=== PATIENT | male | born 1950 | race Caucasian/White ===

== ENCOUNTER 2021-02-08 10:29 | Emergency (ER) | payer BC ==
[~2021-02-08] VITALS: Ht 180.3 cm; Wt 99.8 kg
[2021-02-08 10:29] VITALS: BP_SYST 130
[~2021-02-08 10:29] MED LIST: ATEN-166 PO
[2021-02-08] MEDS ORDERED: PANTOPRAZOLE SODIUM 40 MG/VIAL (PROTONIX) ONE (10:51)
[2021-02-08] MEDS ORDERED: PANTOPRAZOLE SODIUM 40 MG/VIAL (PROTONIX) IVP ONE (11:00)
[2021-02-08] MEDS ORDERED: NACL 0.9% 1,000 ML IV ONE (11:00)
[2021-02-08 11:15] LABS: BASOPHILS # (AUTO) 0.1 K/uL (0.0-0.2); BASOPHILS % (AUTO) 1.1 % (0.0-2.0); EOSINOPHILS # (AUTO) 0.4 K/uL (0.0-0.4); EOSINOPHILS % (AUTO) 6.6 % (0.0-4.0); HEMATOCRIT 48.7 % (36-54); HEMOGLOBIN 16.6 g/dL (14.0-18.0); LYMPHOCYTES # (AUTO) 1.9 K/uL (1.0-5.5); LYMPHOCYTES % (AUTO) 27.4 % (20.5-51.5); MEAN CORPUSCULAR HEMOGLOBIN 34 pg (27-31); MEAN CORPUSCULAR HGB CONC 34 % (32-36); MEAN CORPUSCULAR VOLUME 99 fL (79.0-98.0); MONOCYTES # (AUTO) 0.8 K/uL (0.0-1.0); MONOCYTES % (AUTO) 11.1 % (1.7-9.3); NEUTROPHILS # (AUTO) 3.6 K/uL (1.8-7.7); NEUTROPHILS % (AUTO) 53.8 % (40.0-70.0); PLATELET COUNT (AUTO) 268 K/uL (130-430); RED BLOOD CELL COUNT(AUTO) 4.92 MIL/uL (4.2-6.2); WHITE BLOOD COUNT (AUTO) 6.8 K/uL (4.8-10.8)
[2021-02-08 11:33] LABS: ANION GAP 8 (5-15); CALCIUM 8.2 mg/dL (8.4-11.0); CHLORIDE 101 mmol/L (98-107); CREATININE 0.92 mg/dL (0.55-1.30); GLUCOSE 98 mg/dL (70-99); POTASSIUM 4.5 mmol/L (3.5-5.1); SODIUM SERUM 137 mmol/L (136-145); UREA NITROGEN, BLOOD 15 mg/dL (8-21)
[2021-02-08 11:40] LABS: ALANINE AMINOTRANSFERASE 28 U/L (12-78); ALBUMIN 3.6 g/dL (3.4-4.8); ASPARTATE AMINOTRANSFERASE 17 U/L (10-37); GFR AFRICAN AMERICAN 105 mL/min (>90); TOTAL BILIRUBIN 0.4 mg/dL (0.0-1.0)
[2021-02-08 12:56] VITALS: BP_SYST 149
== END 2021-02-08 12:58 | disposition home or self-care (01) ==
LOC: SED 10:29
DX: R55 Syncope and collapse (principal); I10 Essential (primary) hypertension; F17.200 Nicotine dependence, unspecified, uncomplicated
CPT/HCPCS: 36415; 71045; 80053; 84484; 85025; 85379; 93005; 96361; 96374; 99285; C9113; J7030

== ENCOUNTER 2022-12-06 09:36 | Emergency (ER) | payer BC ==
[~2022-12-06] VITALS: Ht 180.3 cm; Wt 102.1 kg
[2022-12-06 09:45] VITALS: BP_SYST 135
--- NOTE | 2022-12-06 09:48 | NUR ---
Patient to ER bed 5 to gown for evaluation. Side rails up. Report given to Aditi RAMON.
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
--- NOTE | 2022-12-06 09:54 | NUR ---
DR. PICKARD AT BEDSIDE TO ASSESS PT.
[2022-12-06 10:28] LABS: BASOPHILS # (AUTO) 0.1 K/uL (0.0-0.2); EOSINOPHILS # (AUTO) 0.2 K/uL (0.0-0.4); EOSINOPHILS % (AUTO) 2.2 % (0.0-4.0); HEMOGLOBIN 13.8 g/dL (14.0-18.0); LYMPHOCYTES # (AUTO) 1.2 K/uL (1.0-5.5); LYMPHOCYTES % (AUTO) 16.7 % (20.5-51.5); MEAN CORPUSCULAR HEMOGLOBIN 32 pg (27-31); MEAN CORPUSCULAR HGB CONC 34 % (32-36); MEAN CORPUSCULAR VOLUME 96 fL (79.0-98.0); MONOCYTES # (AUTO) 0.6 K/uL (0.0-1.0); MONOCYTES % (AUTO) 8.9 % (1.7-9.3); NEUTROPHILS % (AUTO) 71.2 % (40.0-70.0); PLATELET COUNT (AUTO) 285 K/uL (130-430); RED CELL DISTRIBUTION WIDTH 13.6 % (9.0-15.0)
[2022-12-06 10:41] LABS: ANION GAP 4 (5-15); CALCIUM 9.2 mg/dL (8.4-11.0); CHLORIDE 99 mmol/L (98-107); CREATININE 0.74 mg/dL (0.55-1.30); GLUCOSE 123 mg/dL (70-99); UREA NITROGEN, BLOOD 17 mg/dL (8-21)
[2022-12-06] MEDS ORDERED: CEPH-548 PO (12:43)
[2022-12-06 15:35] VITALS: BP_SYST 138
--- NOTE | 2022-12-06 15:38 | NUR ---
Patient given written and verbal discharge instructions and verbalizes understanding. ER MD discussed with patient the results and treatment provided. Patient in stable condition. ID arm band removed. Rx of CEPHALEXIN given. Patient educated on pain management and to follow up with PMD. Pain Scale 0/10. Opportunity for questions provided and answered. Medication side effect fact sheet provided.
== END 2022-12-06 15:35 | disposition home or self-care (01) ==
LOC: SED 09:36
DX: T20.14XA Burn of first degree of nose (septum), initial encounter (principal); J34.0 Abscess, furuncle and carbuncle of nose; I10 Essential (primary) hypertension; Z79.899 Other long term (current) drug therapy; X08.8XXA Exposure to other specified smoke, fire and flames, initial encounter; Y93.89 Activity, other specified; Y92.89 Other specified places as the place of occurrence of the external cause; Y99.8 Other external cause status
CPT/HCPCS: 36415; 80048; 85025; 99283

== ENCOUNTER 2023-12-13 12:54 | Inpatient (IN) | payer OTHER ==
[~2023-12-13] VITALS: Ht 180.3 cm; Wt 95.3 kg
[~2023-12-13 12:54] MED LIST changes: +CEPH-548 PO
[2023-12-13 13:02] VITALS: BP_SYST 141; PULSE 92; RESP 34; TEMP 97.8; O2SAT 84
[2023-12-13] MEDS ORDERED: MAGNESIUM SULFATE 0 ML IV ONE (13:05)
[2023-12-13] MEDS ORDERED: methylPREDNISolone SOD SUCC/PF 62.5 MG/ML VIAL IVP ONE (13:15)
[2023-12-13] MEDS ORDERED: MAGNESIUM SULFATE 50 ML IV ONE (13:15)
[2023-12-13] MEDS ORDERED: IPRATROPIUM BROM 0.5 MG/2.5 ML VIAL.NEB (ATROVENT) INH ONE (13:15)
[2023-12-13] MEDS ORDERED: ALBUTEROL SULFATE 0.083% 2.5 MG/3 ML VIAL.NEB INH ONE (13:15)
[2023-12-13 13:25] LABS: BASOPHILS % (AUTO) 0.3 % (0.0-2.0); EOSINOPHILS % (AUTO) 0.1 % (0.0-4.0); HEMATOCRIT 41.3 % (36-54); HEMOGLOBIN 14.2 g/dL (14.0-18.0); LYMPHOCYTES # (AUTO) 0.7 K/uL (1.0-5.5); LYMPHOCYTES % (AUTO) 9.3 % (20.5-51.5); MEAN CORPUSCULAR HEMOGLOBIN 33 pg (27-31); MEAN CORPUSCULAR HGB CONC 34 % (32-36); MEAN CORPUSCULAR VOLUME 95 fL (79.0-98.0); MONOCYTES # (AUTO) 0.7 K/uL (0.0-1.0); MONOCYTES % (AUTO) 9.4 % (1.7-9.3); NEUTROPHILS # (AUTO) 6.1 K/uL (1.8-7.7); NEUTROPHILS % (AUTO) 80.9 % (40.0-70.0); PLATELET COUNT (AUTO) 203 K/uL (130-430); RED BLOOD CELL COUNT(AUTO) 4.34 MIL/uL (4.2-6.2); RED CELL DISTRIBUTION WIDTH 13.9 % (9.0-15.0); WHITE BLOOD COUNT (AUTO) 7.5 K/uL (4.8-10.8)
[2023-12-13 13:49] LABS: ANION GAP 6 (5-15); CALCIUM 8.6 mg/dL (8.4-11.0); CARBON DIOXIDE 33 mmol/L (23-29); CHLORIDE 99 mmol/L (98-107); GLUCOSE 160 mg/dL (74-106); POTASSIUM 3.9 mmol/L (3.5-5.1); SODIUM SERUM 138 mmol/L (136-145); UREA NITROGEN, BLOOD 18 mg/dL (8-21)
[2023-12-13 13:51] LABS: INFLUENZA TYPE A Negative (NEGATIVE); INFLUENZA TYPE B NEGATIVE (NEGATIVE)
[2023-12-13 13:54] LABS: ALANINE AMINOTRANSFERASE 28 U/L (12-78); ALBUMIN 3.2 g/dL (3.4-4.8); ASPARTATE AMINOTRANSFERASE 41 U/L (10-37); BILIRUBIN,DIRECT 0.1 mg/dL (0.0-0.3); TOTAL BILIRUBIN 0.2 mg/dL (0.0-1.0); TOTAL PROTEIN, SERUM 7.3 g/dL (6.4-8.3)
[2023-12-13] MEDS ORDERED: BENZONATATE 100 MG CAPSULE (TESSALON) PO ONE (14:45)
[2023-12-13] MEDS ORDERED: guaiFENesin/DEXTROMETHORPHAN 10 ML UDC PO ONE (14:45)
[2023-12-13] MEDS ORDERED: LOSA-412 PO (15:27)
[2023-12-13] MEDS ORDERED: LIP20 PO (15:27)
[2023-12-13] MEDS ORDERED: HYT1 PO ×2 (15:35→15:49)
[2023-12-13] MEDS ORDERED: FORM20VI4 (15:49)
[2023-12-13] MEDS ORDERED: ALBU2.5V7 INH (15:49)
[2023-12-13] MEDS ORDERED: ZOLPIDEM TARTRATE 5 MG TABLET PO PRN (16:00)
[2023-12-13] MEDS ORDERED: MUPIROCIN 2% TOPICAL OINTMENT 22 GM NS PRN (16:00)
[2023-12-13] MEDS ORDERED: ACETAMINOPHEN 500 MG TABLET PO PRN (16:00)
[2023-12-13] MEDS ORDERED: DOCUSATE SODIUM 100 MG CAPSULE PO PRN (16:00)
[2023-12-13] MEDS ORDERED: MAGNESIUM SULFATE 50 ML IV PRN (16:00)
[2023-12-13] MEDS ORDERED: MORPHINE 2 MG/ML INJ. SYRINGE IVP PRN ×2 (16:00)
[2023-12-13] MEDS ORDERED: AZITHROMYCIN 500 MG in NS 250 ML IV ONE (16:00)
[2023-12-13] MEDS ORDERED: ACETAMINOPHEN 500 MG TABLET PO ONE (16:00)
[2023-12-13] MEDS ORDERED: POTASSIUM CHLORIDE 20 MEQ TABLET.ER PO PRN (16:00)
[2023-12-13] MEDS ORDERED: ONDANSETRON HCL 4 MG/2 ML VIAL IVP PRN (16:00)
[2023-12-13] MEDS ORDERED: cefTRIAXone 1 GM in D5W 50 ML IV ONE (16:00)
[2023-12-13] MEDS ORDERED: cefTRIAXone 1 GM VIAL ONE (16:13)
[2023-12-13] MEDS ORDERED: AZITHROMYCIN 500 MG/VIAL (ZITHROMAX) IV ONE (16:13)
[2023-12-13 16:45] VITALS: PULSE 89; O2SAT 90
[2023-12-13] MEDS: NACL 0.9% 1,000 ML IV SCH (17:02)
[2023-12-13] MEDS ORDERED: ONDANSETRON HCL 4 MG/2 ML VIAL IVP ONE (17:15)
[2023-12-13] MEDS: PIPERACILLIN/TAZO 3.375 GM in NS 50 ML IV SCH (20:00)
[2023-12-14] VITALS (11 sets, daily range): BP systolic 147–175; PULSE 73–89; RESP 20–24; TEMP 97.3–98.6; O2SAT 3–94
[2023-12-14] MEDS: ATORVASTATIN 20 MG TABLET PO SCH ×2 (00:15→21:51)
[2023-12-14] MEDS: HEPARIN SODIUM,PORCINE 5,000 UNITS/ML VIAL SUBCUT SCH ×3 (00:16→21:57)
[2023-12-14] MEDS: IPRATROPIUM/ALBUTEROL SULFATE 3 ML AMPUL.NEB (DUONEB) INH PRN ×2 (02:46→17:36)
[2023-12-14] MEDS: PIPERACILLIN/TAZO 3.375 GM in NS 50 ML IV SCH ×3 (03:11→21:57)
[2023-12-14] MEDS: LORazepam 2 MG/ML VIAL IVP PRN ×2 (03:32→11:15)
[2023-12-14 05:55] LABS: BASOPHILS % (AUTO) 0.1 % (0.0-2.0); EOSINOPHILS # (AUTO) 0.1 K/uL (0.0-0.4); EOSINOPHILS % (AUTO) 1.2 % (0.0-4.0); HEMATOCRIT 38.8 % (36-54); HEMOGLOBIN 13.3 g/dL (14.0-18.0); LYMPHOCYTES # (AUTO) 0.4 K/uL (1.0-5.5); LYMPHOCYTES % (AUTO) 6.7 % (20.5-51.5); MEAN CORPUSCULAR HEMOGLOBIN 33 pg (27-31); MEAN CORPUSCULAR HGB CONC 34 % (32-36); MEAN CORPUSCULAR VOLUME 95 fL (79.0-98.0); MONOCYTES # (AUTO) 0.5 K/uL (0.0-1.0); MONOCYTES % (AUTO) 8.2 % (1.7-9.3); NEUTROPHILS # (AUTO) 5.1 K/uL (1.8-7.7); NEUTROPHILS % (AUTO) 83.8 % (40.0-70.0); PLATELET COUNT (AUTO) 221 K/uL (130-430); RED BLOOD CELL COUNT(AUTO) 4.08 MIL/uL (4.2-6.2); RED CELL DISTRIBUTION WIDTH 13.9 % (9.0-15.0); WHITE BLOOD COUNT (AUTO) 6.1 K/uL (4.8-10.8)
[2023-12-14 06:22] LABS: ANION GAP 9 (5-15); CALCIUM 8.5 mg/dL (8.4-11.0); CARBON DIOXIDE 32 mmol/L (23-29); CHLORIDE 100 mmol/L (98-107); CREATININE 0.84 mg/dL (0.55-1.30); GLUCOSE 138 mg/dL (74-106); POTASSIUM 4.2 mmol/L (3.5-5.1); SODIUM SERUM 141 mmol/L (136-145); UREA NITROGEN, BLOOD 11 mg/dL (8-21)
[2023-12-14] MEDS: NACL 0.9% 1,000 ML IV SCH (08:45)
[2023-12-14] MEDS: TERAZOSIN HCL 1 MG CAPSULE (HYTRIN) PO SCH (08:52)
[2023-12-14] MEDS: ATENOLOL 25 MG TABLET(TENORMIN) PO SCH (08:53)
[2023-12-14] MEDS ORDERED: FLUTICASONE/VILANTEROL 1 EACH BLST.W.DEV INH SCH (09:00)
[2023-12-14] MEDS ORDERED: LOSARTAN POTASSIUM 25 MG TABLET PO SCH (09:00)
[2023-12-14] MEDS: METHYLPREDNISOLONE SOD SUCC 40 MG/ML VIAL IVP SCH ×2 (12:00→17:15)
[2023-12-14] MEDS: IPRATROPIUM/ALBUTEROL SULFATE 3 ML AMPUL.NEB (DUONEB) INH SCH ×2 (14:53→19:56)
[2023-12-14] MEDS ORDERED: FUROSEMIDE 40 MG/4 ML VIAL IVP ONE (16:15)
[2023-12-14] MEDS: BUDESONIDE 0.5 MG/2 ML AMPUL.NEB INH SCH (19:57)
[2023-12-14] MEDS ORDERED: hydrALAZINE HCL 25 MG TABLET PO PRN (23:45)
[2023-12-15] VITALS (11 sets, daily range): BP systolic 153–164; PULSE 64–85; RESP 18–20; TEMP 97–98; O2SAT 90–98
[2023-12-15] MEDS: METHYLPREDNISOLONE SOD SUCC 40 MG/ML VIAL IVP SCH ×5 (00:09→23:35)
[2023-12-15] MEDS: IPRATROPIUM/ALBUTEROL SULFATE 3 ML AMPUL.NEB (DUONEB) INH SCH ×4 (03:01→20:17)
[2023-12-15] MEDS: PIPERACILLIN/TAZO 3.375 GM in NS 50 ML IV SCH ×3 (03:31→20:16)
[2023-12-15 05:27] LABS: BASOPHILS % (AUTO) 0.1 % (0.0-2.0); HEMOGLOBIN 13.3 g/dL (14.0-18.0); LYMPHOCYTES # (AUTO) 0.5 K/uL (1.0-5.5); LYMPHOCYTES % (AUTO) 9.1 % (20.5-51.5); MEAN CORPUSCULAR HEMOGLOBIN 32 pg (27-31); MEAN CORPUSCULAR HGB CONC 34 % (32-36); MEAN CORPUSCULAR VOLUME 94 fL (79.0-98.0); MONOCYTES # (AUTO) 0.5 K/uL (0.0-1.0); MONOCYTES % (AUTO) 10.6 % (1.7-9.3); NEUTROPHILS # (AUTO) 4.1 K/uL (1.8-7.7); NEUTROPHILS % (AUTO) 80.2 % (40.0-70.0); PLATELET COUNT (AUTO) 194 K/uL (130-430); RED BLOOD CELL COUNT(AUTO) 4.14 MIL/uL (4.2-6.2); RED CELL DISTRIBUTION WIDTH 13.4 % (9.0-15.0); WHITE BLOOD COUNT (AUTO) 5.2 K/uL (4.8-10.8)
[2023-12-15 06:02] LABS: ANION GAP 6 (5-15); CALCIUM 8.6 mg/dL (8.4-11.0); CARBON DIOXIDE 37 mmol/L (23-29); CHLORIDE 98 mmol/L (98-107); CREATININE 0.89 mg/dL (0.55-1.30); GLUCOSE 151 mg/dL (74-106); POTASSIUM 4.5 mmol/L (3.5-5.1); SODIUM SERUM 141 mmol/L (136-145); UREA NITROGEN, BLOOD 16 mg/dL (8-21)
[2023-12-15] MEDS: BUDESONIDE 0.5 MG/2 ML AMPUL.NEB INH SCH ×2 (07:33→20:28)
[2023-12-15] MEDS ORDERED: LOSARTAN POTASSIUM 50 MG TABLET (COZAAR) PO SCH (09:00)
[2023-12-15] MEDS: HEPARIN SODIUM,PORCINE 5,000 UNITS/ML VIAL SUBCUT SCH ×2 (10:37→20:17)
[2023-12-15] MEDS: ATENOLOL 25 MG TABLET(TENORMIN) PO SCH (10:43)
[2023-12-15] MEDS: TERAZOSIN HCL 1 MG CAPSULE (HYTRIN) PO SCH (10:44)
[2023-12-15] MEDS ORDERED: CALCIUM CARBONATE 500 MG/ TAB.CHEW PO PRN (17:15)
[2023-12-15] MEDS: ATORVASTATIN 20 MG TABLET PO SCH (20:17)
[2023-12-15] MEDS: LOSARTAN POTASSIUM 50 MG TABLET (COZAAR) PO SCH (20:17)
[2023-12-16] VITALS (7 sets, daily range): BP systolic 148–172; PULSE 70–73; RESP 18–20; TEMP 97.2–98.1; O2SAT 91–96
[2023-12-16] MEDS: LORazepam 2 MG/ML VIAL IVP PRN ×2 (00:51→04:58)
[2023-12-16] MEDS: IPRATROPIUM/ALBUTEROL SULFATE 3 ML AMPUL.NEB (DUONEB) INH SCH ×3 (01:30→12:52)
[2023-12-16] MEDS: PIPERACILLIN/TAZO 3.375 GM in NS 50 ML IV SCH ×2 (03:50→12:06)
[2023-12-16] MEDS: METHYLPREDNISOLONE SOD SUCC 40 MG/ML VIAL IVP SCH ×2 (04:58→12:06)
[2023-12-16 05:03] LABS: HEMATOCRIT 41.1 % (36-54); LYMPHOCYTES # (AUTO) 0.9 K/uL (1.0-5.5); LYMPHOCYTES % (AUTO) 12.9 % (20.5-51.5); MEAN CORPUSCULAR HEMOGLOBIN 32 pg (27-31); MEAN CORPUSCULAR HGB CONC 34 % (32-36); MEAN CORPUSCULAR VOLUME 94 fL (79.0-98.0); MONOCYTES % (AUTO) 15.5 % (1.7-9.3); NEUTROPHILS # (AUTO) 4.8 K/uL (1.8-7.7); NEUTROPHILS % (AUTO) 71.6 % (40.0-70.0); PLATELET COUNT (AUTO) 222 K/uL (130-430); RED BLOOD CELL COUNT(AUTO) 4.36 MIL/uL (4.2-6.2); RED CELL DISTRIBUTION WIDTH 13.8 % (9.0-15.0); WHITE BLOOD COUNT (AUTO) 6.8 K/uL (4.8-10.8)
[2023-12-16 05:12] LABS: ANION GAP 3 (5-15); CALCIUM 8.2 mg/dL (8.4-11.0); CARBON DIOXIDE 38 mmol/L (23-29); CHLORIDE 100 mmol/L (98-107); GLUCOSE 110 mg/dL (74-106); POTASSIUM 4.1 mmol/L (3.5-5.1); SODIUM SERUM 141 mmol/L (136-145); UREA NITROGEN, BLOOD 17 mg/dL (8-21)
[2023-12-16] MEDS: BUDESONIDE 0.5 MG/2 ML AMPUL.NEB INH SCH (07:43)
[2023-12-16] MEDS: LOSARTAN POTASSIUM 50 MG TABLET (COZAAR) PO SCH (09:47)
[2023-12-16] MEDS: TERAZOSIN HCL 1 MG CAPSULE (HYTRIN) PO SCH (09:47)
[2023-12-16] MEDS: ATENOLOL 25 MG TABLET(TENORMIN) PO SCH (09:51)
[2023-12-16] MEDS: HEPARIN SODIUM,PORCINE 5,000 UNITS/ML VIAL SUBCUT SCH (09:54)
[2023-12-16] MEDS ORDERED: FLUT1BLS3 INH (12:56)
[2023-12-16] MEDS ORDERED: PRED20TA PO (12:56)
[2023-12-16] MEDS ORDERED: LOSA-413 PO (12:56)
== END 2023-12-16 14:33 | disposition home health service (06) | DRG 189 ==
LOC: SED 12:54 → STU 16:08 → SMU 12-14 16:18
PROVIDERS: ADMIT General Practice; ATTEND General Practice
PROC: 5A09357 Assistance with Respiratory Ventilation, Less than 24 Consecutive Hours, Continuous Positive Airway Pressure (ICD-10-PCS; principal; 2023-12-13)
DX: J96.21 Acute and chronic respiratory failure with hypoxia (principal); J44.1 Chronic obstructive pulmonary disease with (acute) exacerbation; Z20.822 Contact with and (suspected) exposure to COVID-19; I10 Essential (primary) hypertension; Z72.0 Tobacco use
CPT/HCPCS: 36415; 71045; 71250-TC; 76376; 80048; 80076; 83037; 83605; 83735; 83880; 84484; 85025; 87040; 94640; 94660; 94760; 99291; G0378; J0456; J0696; J1030; J1644; J1940; J2060; J2405; J2543; J2930; J3475; J7626